=== PATIENT | female | born 1995 | race Caucasian/White ===

== ENCOUNTER 2023-05-18 15:17 | Emergency (ER) | payer SELFPAY ==
[2023-05-18 15:29] VITALS: BP 132/78; PULSE 97; RESP 18; TEMP 37.3; O2SAT 98; BMI 38.0
--- NOTE | 2023-05-18 17:11 | ED.URI ---
HPI - URI/Sore Throat <Evi Medel PA-C - Last Filed: 05/18/23 19:05> General Chief Complaint: Upper Respiratory Symptoms Stated Complaint: swollen tonsils, difficulty breathing Time Seen by Provider: 05/18/23 15:35 Source: patient Mode of arrival: Ambulatory History of Present Illness HPI Narrative: Patient is a 28-year-old who presents with tonsil pain. This started yesterday with a scratchy throat and has progressed to severe pain and difficulty swallowing. It hurts to breathe because of the air moving across the back of her throat. She denies fever but endorses feeling hot and cold over the past 24 hours. She is not taken any pain medication today. She is a history of tonsillitis as a child but none recently. She denies runny nose, headache, cough, chest pain, nausea, vomiting, urinary symptoms. Her neck is not stiff or sore. She reports a medical history of autism. Related Data Previous Rx's Medication Instructions Recorded amoxicillin 500 mg capsule 500 mg PO BID 10 days #20 caps 05/18/23 ibuprofen 600 mg tablet 600 mg PO Q6H PRN pain #30 tabs 05/18/23 oxycodone 5 mg tablet 5 mg PO TID severe pain #7 tabs 05/18/23 Allergies Allergy/AdvReac Type Severity Reaction Status Date / Time shellfish derived Allergy Swelling Verified 05/18/23 15:33 of Lip/Tongue/Throat Review of Systems <Evi Medel PA-C - Last Filed: 05/18/23 19:05> Review of Systems ROS Unobtainable: All systems reviewed & are unremarkable except as noted in HPI and below Patient History <Evi Medel PA-C - Last Filed: 05/18/23 19:05> Social History Smoking Status: Current every day smoker Smoking Status: Current every day smoker alcohol intake frequency: a few times a week Substance Use Type: marijuana Exam <Evi Medel PA-C - Last Filed: 05/18/23 19:05> Narrative Exam Narrative: GENERAL: 28 year old patient appears stated age. Well-developed patient, tearful appears uncomfortable. NEURO: AOx3. HEAD: Atraumatic. Normocephalic. EYES: Pupils equal round and reactive. Extraocular motions intact. No scleral icterus. No injection or drainage. ENT: Nose without bleeding or purulent drainage. Throat with significant bilateral tonsillar erythema, tonsillar edema and halitosis. Tonsils appear brown. Airway patent. Uvula is midline and there is no evidence of peritonsillar abscess. No swelling in the sublingual space. NECK: Trachea midline. Tender cervical adenopathy. RESPIRATORY: Clear to auscultation. Breath sounds equal bilaterally. No wheezes, rales, or rhonchi. EXTREMITIES: No edema or joint tenderness. SKIN: No rash or erythema of visible areas Initial Vital Signs Initial Vital Signs: Vital Signs Temperature 99.2 F 05/18/23 15:29 Pulse Rate 97 H 05/18/23 15:29 Respiratory Rate 18 05/18/23 15:29 Blood Pressure 132/78 05/18/23 15:29 Pulse Oximetry 98 05/18/23 15:29 Oxygen Delivery Method Room Air 05/18/23 15:29 <Emmett Diego MD - Last Filed: 05/26/23 08:45> Initial Vital Signs Initial Vital Signs: Vital Signs Temperature 99.2 F 05/18/23 15:29 Pulse Rate 97 H 05/18/23 15:29 Respiratory Rate 18 05/18/23 15:29 Blood Pressure 132/78 05/18/23 15:29 Pulse Oximetry 98 05/18/23 15:29 Oxygen Delivery Method Room Air 05/18/23 15:29 Course <Evi Medel PA-C - Last Filed: 05/18/23 19:05> Orders Ordered: Discontinued Medications Acetaminophen (Acetaminophen 325 Mg Tablet) 975 mg PO NOW ONE Stop: 05/18/23 17:07 Last Admin: 05/18/23 17:23 Dose: 975 mg Documented By: CYNTHIA Amoxicillin (Amoxicillin 250 Mg Capsule) 500 mg PO NOW ONE Stop: 05/18/23 17:33 Last Admin: 05/18/23 17:50 Dose: 500 mg Documented By: CYNTHIA Dexamethasone (Dexamethasone 4 Mg Tablet) 20 mg PO NOW ONE Stop: 05/18/23 17:46 Last Admin: 05/18/23 17:50 Dose: 20 mg Documented By: CYNTHIA Ketorolac Tromethamine (Ketorolac 30 Mg/Ml Vial) 15 mg IM NOW ONE Stop: 05/18/23 17:07 Last Admin: 05/18/23 17:24 Dose: 15 mg Documented By: CYNTHIA Oxycodone HCl (Oxycodone Ir 5 Mg Tablet) 5 mg PO NOW ONE Stop: 05/18/23 17:07 Last Admin: 05/18/23 17:24 Dose: 5 mg Documented By: CYNTHIA Vital Signs Vital signs: Vital Signs - 8 hr 05/18/23 15:29 05/18/23 18:00 Temperature 99.2 F Pulse Rate 97 H 83 Respiratory Rate 18 16 Blood Pressure 132/78 135/88 Pulse Oximetry 98 99 Oxygen Delivery Method Room Air Room Air <Emmett Diego MD - Last Filed: 05/26/23 08:45> Orders Ordered: Discontinued Medications Acetaminophen (Acetaminophen 325 Mg Tablet) 975 mg PO NOW ONE Stop: 05/18/23 17:07 Last Admin: 05/18/23 17:23 Dose: 975 mg Documented By: CYNTHIA Amoxicillin (Amoxicillin 250 Mg Capsule) 500 mg PO NOW ONE Stop: 05/18/23 17:33 Last Admin: 05/18/23 17:50 Dose: 500 mg Documented By: CYNTHIA Dexamethasone (Dexamethasone 4 Mg Tablet) 20 mg PO NOW ONE Stop: 05/18/23 17:46 Last Admin: 05/18/23 17:50 Dose: 20 mg Documented By: CYNTHIA Ketorolac Tromethamine (Ketorolac 30 Mg/Ml Vial) 15 mg IM NOW ONE Stop: 05/18/23 17:07 Last Admin: 05/18/23 17:24 Dose: 15 mg Documented By: CYNTHIA Oxycodone HCl (Oxycodone Ir 5 Mg Tablet) 5 mg PO NOW ONE Stop: 05/18/23 17:07 Last Admin: 05/18/23 17:24 Dose: 5 mg Documented By: CYNTHIA Vital Signs Vital signs: Vital Signs - 8 hr 05/18/23 15:29 05/18/23 18:00 Temperature 99.2 F Pulse Rate 97 H 83 Respiratory Rate 18 16 Blood Pressure 132/78 135/88 Pulse Oximetry 98 99 Oxygen Delivery Method Room Air Room Air MDM - URI/Sore Throat <Evi Medel PA-C - Last Filed: 05/18/23 19:05> Lab Data Labs: Lab Results 05/18/23 Range/Units 14:59 Group A Strep (PCR) Negative (Negative) MDM Narrative Medical decision making narrative: Multiple etiologies for patient's symptoms considered including, but not limited to: Strep pharyngitis, viral pharyngitis, peritonsillar abscess. Discussed with Dr. Diego. We will treat with amoxicillin for strep A pharyngitis despite negative strep test given degree of erythema, edema and pain, and give p.o. steroids to do decrease inflammation and pain. A pharyngeal culture is pending and I will follow results. Patient's symptoms improved over duration of stay with above-stated therapies. Findings and discharge diagnosis discussed with patient/family followed by verbalization of understanding Return precautions discussed with patient/family whom verbalize understanding of diagnosis and plan <Emmett Diego MD - Last Filed: 05/26/23 08:45> Lab Data Labs: Lab Results 05/18/23 Range/Units 14:59 Group A Strep (PCR) Negative (Negative) Discharge Plan Departure Patient Disposition: Home Clinical Impression: Acute tonsillitis, unspecified Instructions: DI for Strep Throat Activity Restrictions/Additional Instructions: *You have been diagnosed with acute pharyngitis. Your strep test was negative but we will watch the pharyngeal culture for any growth and I will notify you if anything comes back positive. We will give you steroids in the emergency department which will help with the pain and inflammation. I will prescribe you a 10 day course of antibiotics, please complete the antibiotics even if you feel better. If you develop any difficulty breathing, please return immediately to the emergency department or call 911. If you are not feeling better after 48-72 hours of antibiotics, I would advise you to seek care again. You can always visit the walk-in clinic at [facility] for a recheck if you are not having any shortness of breath. You should continue to take Tylenol, 1 g every 8 hours, and ibuprofen, 600 mg every 6 hours, for pain I will also prescribe you a stronger pain medicine for the next 24 hours to get you through this really painful time. *What to do: *Please continue to take your regular medications as directed. [x ] New medication prescriptions sent to your pharmacy: [[facility]] [ ] New medication written as a paper prescription [ ] No new medications given *Please follow up with your primary care provider in 2-3 days, call for an appointment. Let them know you were seen in the Emergency Department and that we ask that you be seen in follow up. We will electronically transmit a record of today's note if your PCP is in our system *If you do not have a primary care provider please contact the [facility] Resource line at [phone]. They will ask some questions about your medical history and help get you set up with a doctor in the community. *Return to Emergency Department if you should have any new, worsening or concerning symptoms, such as [fever greater than 101 F, shaking chills, worsening pain, persistent vomiting or other concerning symptoms]. Prescriptions: New amoxicillin 500 mg capsule 500 mg PO BID 10 Days Qty: 20 0RF oxycodone 5 mg tablet 5 mg PO TID Qty: 7 0RF ibuprofen 600 mg tablet 600 mg PO Q6H PRN (Reason: pain) Qty: 30 0RF Stand Alone Forms: Patient Portal/API, Work Release Note <Emmett Diego MD - Last Filed: 05/26/23 08:45> [facility] I was immediately available in the department for consultation. ?This documentation has been reviewed and I agree with assessment and plan. Supervised by Emmett Diego MD
[2023-05-18 17:15] LABS: Strep Grp A by PCR Rapid Negative (Negative)
[2023-05-18] MEDS: ACETAMINOPHEN 325 MG TABLET 975 MG PO (17:23)
[2023-05-18] MEDS: OXYCODONE IR 5 MG TABLET PO (17:24)
[2023-05-18] MEDS: KETOROLAC 30 MG/ML VIAL 15 MG IM (17:24)
[2023-05-18] MEDS: dexAMETHasone 4 MG TABLET 20 MG PO (17:50)
[2023-05-18] MEDS: AMOXICILLIN 250 MG CAPSULE 500 MG PO (17:50)
[2023-05-18 18:00] VITALS: BP 135/88; PULSE 83; RESP 16; O2SAT 99
== END 2023-05-18 18:04 | disposition home or self-care (01) ==
PROVIDERS: Emergency Medicine; Emergency Provider Physician Assistant
DX: J03.90 Acute tonsillitis, unspecified (principal)
CPT/HCPCS: 87070; 87077; 87147; 87651; 96372; 99283; J1885